=== PATIENT | male | born 1950 | race Caucasian/White ===

== ENCOUNTER 2022-12-26 12:17 | Inpatient (IN) ==
[2022-12-26 14:37] LABS: Bilirubin,Urine Negative (Negative); Blood, Urine Negative (Negative); Glucose,Urine (UA) Negative (Negative); Ketones,Urine Negative (Negative); Mucus,Urine Occasional /LPF (Occasional); Nitrite,Urine Negative (Negative); Protein,Urine Negative (Negative); RBC,Urine <1 /HPF (0-4); Sperm,Urine Few /HPF (Negative); Urine Appearance Clear (Clear); Urine Color Yellow (Yellow); Urine Urobilinogen 0.2 eU/dL (<2.0); Urine pH 7.5 (4.5-8.0)
[2022-12-26 14:45] LABS: Basophils % 0.2 % (0.0-0.8); Hematocrit 46.1 VOL% (42.0-52.0); Hemoglobin 15.3 GM/DL (14.0-18.0); Immature Granulocytes % 0.6 %; Immature Granulocytes Absolute 0.13 #; Lymphocytes # 1.4 10*3/uL (1.4-4.0); Lymphocytes % 5.8 % (21.2-54.2); Mean Corpuscular HGB Conc 33.2 GM/DL (32-36); Mean Corpuscular Volume 87.6 FL (87-102); Mean Platelet Volume 8.7 FL (9.6-12.0); Monocytes # 1.5 10*3/uL (0.11-0.8); Monocytes % 6.3 % (1.7-12.7); Neutrophils % 87.1 % (38.7-73.9); Platelet Count 348 T/CUMM (130-400); Red Blood Count 5.26 MC/CUMM (3.8-5.5); Red Cell Distribution Width 14.7 % (9.3-17.3); White Blood Count 23.37 T/CUMM (4-12)
[2022-12-26 15:07] LABS: Bilirubin,Total 0.6 MG/DL (0.20-1.00); Calcium 9.4 MG/DL (8.5-10.1); Osmolality,Calculated 279.4 MOS/KG (273-304); Potassium 3.7 MMOL/L (3.5-5.1); Total Protein 7.9 G/DL (6.4-8.2)
[2022-12-26 15:14] LABS: Band Neutrophils 3 % (0-10); Lymphocytes 10 % (20-55)
[2022-12-26 15:15] LABS: Ovalocytes Slight; Platelet Estimate Normal
[2022-12-26 15:16] LABS: Total Cells Counted 100
[2022-12-26] MEDS ORDERED: MORPHINE 2 MG/1 ML SYRINGE IV STA (15:51)
[2022-12-26] MEDS ORDERED: ONDANSETRON 4 MG/2 ML VIAL IV STA (15:52)
[2022-12-26] MEDS ORDERED: PIPERACILLIN/TAZOBACTAM 3,375 MG in SODIUM CHLORIDE 0.9% 100 ML IV STA (16:22)
[2022-12-26] MEDS ORDERED: SODIUM CHLORIDE 0.9% 500 ML IV STA (16:22)
[2022-12-26] MEDS ORDERED: HYDROmorphone 1 MG/1 ML SYRINGE IV STA (16:31)
[2022-12-26] MEDS ORDERED: DOCUSATE SODIUM 100 MG CAPSULE PO PRN (18:34)
[2022-12-26] MEDS ORDERED: ONDANSETRON 4 MG/2 ML VIAL IV PRN (18:34)
[2022-12-26] MEDS ORDERED: ACETAMINOPHEN 325 MG TABLET PO PRN (18:34)
[2022-12-26] MEDS: ALBUTEROL 2.5 MG/3 ML NEB RESP TX SCH (20:58)
[2022-12-26] MEDS: ENOXAPARIN 40 MG/0.4 ML SYRINGE SUBCUT SCH (21:16)
[2022-12-26] MEDS: HYDROmorphone 1 MG/1 ML SYRINGE IV PRN (21:17)
[2022-12-26] MEDS: ZALEPLON 5 MG CAPSULE PO PRN (21:17)
[2022-12-26] MEDS: AZITHROMYCIN INJ 500 MG in SODIUM CHLORIDE 0.9% 250 ML IV SCH (21:17)
[2022-12-26] MEDS: guaiFENesin/DM ER 600-30 MG TABLET PO SCH (21:17)
[2022-12-27] MEDS: PIPERACILLIN/TAZOBACTAM 3,375 MG in SODIUM CHLORIDE 0.9% 100 ML IV SCH ×3 (00:15→16:26)
[2022-12-27] MEDS: ALBUTEROL 2.5 MG/3 ML NEB RESP TX SCH ×4 (00:49→18:45)
[2022-12-27] MEDS: HYDROmorphone 1 MG/1 ML SYRINGE IV PRN (04:22)
[2022-12-27 06:00] LABS: Basophils % 0.1 % (0.0-0.8); Hematocrit 43.4 VOL% (42.0-52.0); Hemoglobin 14.1 GM/DL (14.0-18.0); Immature Granulocytes % 0.6 %; Immature Granulocytes Absolute 0.14 #; Lymphocytes # 1.9 10*3/uL (1.4-4.0); Lymphocytes % 8.9 % (21.2-54.2); Mean Corpuscular HGB Conc 32.5 GM/DL (32-36); Mean Corpuscular Volume 87.9 FL (87-102); Mean Platelet Volume 9.5 FL (9.6-12.0); Monocytes # 1.7 10*3/uL (0.11-0.8); Monocytes % 7.7 % (1.7-12.7); Neutrophils % 82.7 % (38.7-73.9); Platelet Count 311 T/CUMM (130-400); Red Blood Count 4.94 MC/CUMM (3.8-5.5); Red Cell Distribution Width 14.7 % (9.3-17.3); White Blood Count 21.56 T/CUMM (4-12)
[2022-12-27 06:10] LABS: Osmolality,Calculated 271.1 MOS/KG (273-304); Potassium 3.8 MMOL/L (3.5-5.1)
[2022-12-27 06:35] LABS: Band Neutrophils 3 % (0-10); Lymphocytes 13 % (20-55); Platelet Estimate Normal; Total Cells Counted 100
[2022-12-27 06:36] LABS: Anisocytosis Slight
[2022-12-27] MEDS: FINASTERIDE 5 MG TABLET PO SCH (08:46)
[2022-12-27] MEDS: TAMSULOSIN 0.4 MG CAPSULE PO SCH (08:46)
[2022-12-27] MEDS: PANTOPRAZOLE 40 MG TABLET PO SCH (08:46)
[2022-12-27] MEDS: guaiFENesin/DM ER 600-30 MG TABLET PO SCH ×2 (08:46→20:38)
[2022-12-27] MEDS: amLODIPine 10 MG TABLET PO SCH (10:53)
[2022-12-27] MEDS ORDERED: HYDROmorphone 1 MG/1 ML SYRINGE IV PRN (15:20)
[2022-12-27] MEDS: AZITHROMYCIN INJ 500 MG in SODIUM CHLORIDE 0.9% 250 ML IV SCH (20:43)
[2022-12-27] MEDS: ENOXAPARIN 40 MG/0.4 ML SYRINGE SUBCUT SCH (20:47)
[2022-12-28] MEDS: ALBUTEROL 2.5 MG/3 ML NEB RESP TX SCH ×4 (01:10→19:15)
[2022-12-28] MEDS: PIPERACILLIN/TAZOBACTAM 3,375 MG in SODIUM CHLORIDE 0.9% 100 ML IV SCH ×3 (01:40→16:50)
[2022-12-28 05:28] LABS: Basophils % 0.2 % (0.0-0.8); Eosinophils # 0.1 10*3/uL (0.0-0.87); Eosinophils % 0.5 % (0.00-10.9); Hematocrit 40.9 VOL% (42.0-52.0); Hemoglobin 13.6 GM/DL (14.0-18.0); Immature Granulocytes % 0.5 %; Lymphocytes # 1.8 10*3/uL (1.4-4.0); Lymphocytes % 9.2 % (21.2-54.2); Mean Corpuscular HGB Conc 33.3 GM/DL (32-36); Mean Platelet Volume 9.4 FL (9.6-12.0); Monocytes # 1.3 10*3/uL (0.11-0.8); Monocytes % 6.7 % (1.7-12.7); Neutrophils % 82.9 % (38.7-73.9); Platelet Count 258 T/CUMM (130-400); Red Blood Count 4.65 MC/CUMM (3.8-5.5); Red Cell Distribution Width 14.5 % (9.3-17.3); White Blood Count 19.25 T/CUMM (4-12)
[2022-12-28 06:07] LABS: Calcium 9.3 MG/DL (8.5-10.1); Osmolality,Calculated 274.8 MOS/KG (273-304); Potassium 3.3 MMOL/L (3.5-5.1)
[2022-12-28] MEDS: amLODIPine 10 MG TABLET PO SCH (09:00)
[2022-12-28] MEDS: guaiFENesin/DM ER 600-30 MG TABLET PO SCH ×2 (09:00→21:45)
[2022-12-28] MEDS: TAMSULOSIN 0.4 MG CAPSULE PO SCH (09:00)
[2022-12-28] MEDS: FINASTERIDE 5 MG TABLET PO SCH (09:00)
[2022-12-28] MEDS: LOSARTAN 50 MG TABLET PO SCH (09:00)
[2022-12-28] MEDS: PANTOPRAZOLE 40 MG TABLET PO SCH (09:00)
[2022-12-28] MEDS ORDERED: ALBUTEROL 1.25 MG/3 ML NEB RESP TX PRN (11:54)
[2022-12-28] MEDS: ARFORMOTEROL 15 MCG/2 ML NEB RESP TX SCH ×2 (13:20→19:14)
[2022-12-28] MEDS: BUDESONIDE 0.5 MG/2 ML NEB RESP TX SCH ×2 (13:20→19:15)
[2022-12-28] MEDS: AZITHROMYCIN INJ 500 MG in SODIUM CHLORIDE 0.9% 250 ML IV SCH (21:45)
[2022-12-28] MEDS: ZALEPLON 5 MG CAPSULE PO PRN (21:45)
[2022-12-28] MEDS: ENOXAPARIN 40 MG/0.4 ML SYRINGE SUBCUT SCH (21:50)
[2022-12-29] MEDS: ALBUTEROL 2.5 MG/3 ML NEB RESP TX SCH ×4 (00:31→19:55)
[2022-12-29] MEDS: PIPERACILLIN/TAZOBACTAM 3,375 MG in SODIUM CHLORIDE 0.9% 100 ML IV SCH ×3 (00:50→16:41)
[2022-12-29 05:22] LABS: Basophils % 0.2 % (0.0-0.8); Eosinophils # 0.3 10*3/uL (0.0-0.87); Eosinophils % 1.4 % (0.00-10.9); Hematocrit 38.8 VOL% (42.0-52.0); Hemoglobin 12.9 GM/DL (14.0-18.0); Immature Granulocytes % 0.4 %; Immature Granulocytes Absolute 0.08 #; Lymphocytes # 1.6 10*3/uL (1.4-4.0); Lymphocytes % 8.4 % (21.2-54.2); Mean Corpuscular HGB Conc 33.2 GM/DL (32-36); Mean Corpuscular Volume 88.2 FL (87-102); Mean Platelet Volume 9.1 FL (9.6-12.0); Monocytes # 1.5 10*3/uL (0.11-0.8); Monocytes % 8.1 % (1.7-12.7); Neutrophils % 81.5 % (38.7-73.9); Platelet Count 272 T/CUMM (130-400); Red Cell Distribution Width 14.4 % (9.3-17.3); White Blood Count 18.37 T/CUMM (4-12)
[2022-12-29 05:48] LABS: Calcium 9.1 MG/DL (8.5-10.1); Osmolality,Calculated 275.5 MOS/KG (273-304); Potassium 3.4 MMOL/L (3.5-5.1)
[2022-12-29] MEDS: BUDESONIDE 0.5 MG/2 ML NEB RESP TX SCH (07:10)
[2022-12-29] MEDS: ARFORMOTEROL 15 MCG/2 ML NEB RESP TX SCH (07:10)
[2022-12-29] MEDS: TAMSULOSIN 0.4 MG CAPSULE PO SCH (09:29)
[2022-12-29] MEDS: amLODIPine 10 MG TABLET PO SCH (09:29)
[2022-12-29] MEDS: FINASTERIDE 5 MG TABLET PO SCH (09:29)
[2022-12-29] MEDS: PANTOPRAZOLE 40 MG TABLET PO SCH (09:29)
[2022-12-29] MEDS: guaiFENesin/DM ER 600-30 MG TABLET PO SCH ×2 (09:29→21:15)
[2022-12-29] MEDS: LOSARTAN 50 MG TABLET PO SCH (09:31)
[2022-12-29] MEDS: ENOXAPARIN 40 MG/0.4 ML SYRINGE SUBCUT SCH (21:16)
[2022-12-30] MEDS: POLYETHYLENE GLYCOL POWDER 17 GM PACK PO SCH ×3 (00:05→20:42)
[2022-12-30] MEDS: PIPERACILLIN/TAZOBACTAM 3,375 MG in SODIUM CHLORIDE 0.9% 100 ML IV SCH ×3 (02:26→17:02)
[2022-12-30] MEDS: ALBUTEROL 2.5 MG/3 ML NEB RESP TX SCH ×4 (02:56→19:52)
[2022-12-30 05:07] LABS: Basophils % 0.2 % (0.0-0.8); Eosinophils # 0.4 10*3/uL (0.0-0.87); Eosinophils % 2.9 % (0.00-10.9); Hematocrit 38.3 VOL% (42.0-52.0); Hemoglobin 12.4 GM/DL (14.0-18.0); Immature Granulocytes % 0.5 %; Immature Granulocytes Absolute 0.07 #; Lymphocytes # 1.6 10*3/uL (1.4-4.0); Lymphocytes % 12.2 % (21.2-54.2); Mean Corpuscular HGB Conc 32.4 GM/DL (32-36); Mean Corpuscular Volume 88.2 FL (87-102); Mean Platelet Volume 9.4 FL (9.6-12.0); Monocytes # 1.4 10*3/uL (0.11-0.8); Monocytes % 10.3 % (1.7-12.7); Neutrophils % 73.9 % (38.7-73.9); Platelet Count 282 T/CUMM (130-400); Red Blood Count 4.34 MC/CUMM (3.8-5.5); Red Cell Distribution Width 14.4 % (9.3-17.3); White Blood Count 13.26 T/CUMM (4-12)
[2022-12-30 05:30] LABS: Osmolality,Calculated 273.7 MOS/KG (273-304); Potassium 3.3 MMOL/L (3.5-5.1)
[2022-12-30] MEDS: POTASSIUM CHLORIDE 20 MEQ TABLET PO PRN ×3 (07:17→11:55)
[2022-12-30] MEDS: FINASTERIDE 5 MG TABLET PO SCH (09:20)
[2022-12-30] MEDS: TAMSULOSIN 0.4 MG CAPSULE PO SCH (09:20)
[2022-12-30] MEDS: LOSARTAN 50 MG TABLET PO SCH (09:20)
[2022-12-30] MEDS: amLODIPine 10 MG TABLET PO SCH (09:20)
[2022-12-30] MEDS: PANTOPRAZOLE 40 MG TABLET PO SCH (10:13)
[2022-12-30] MEDS: guaiFENesin/DM ER 600-30 MG TABLET PO SCH ×2 (10:13→20:41)
[2022-12-30] MEDS: ALPRAZolam 0.5 MG TABLET PO SCH ×2 (15:17→20:41)
[2022-12-30] MEDS: ENOXAPARIN 40 MG/0.4 ML SYRINGE SUBCUT SCH (21:43)
[2022-12-31] MEDS: PIPERACILLIN/TAZOBACTAM 3,375 MG in SODIUM CHLORIDE 0.9% 100 ML IV SCH ×3 (01:50→10:58)
[2022-12-31 05:25] LABS: Basophils % 0.2 % (0.0-0.8); Eosinophils # 0.5 10*3/uL (0.0-0.87); Eosinophils % 4.8 % (0.00-10.9); Hematocrit 38.8 VOL% (42.0-52.0); Hemoglobin 12.6 GM/DL (14.0-18.0); Immature Granulocytes % 0.8 %; Immature Granulocytes Absolute 0.09 #; Lymphocytes # 1.8 10*3/uL (1.4-4.0); Lymphocytes % 16.5 % (21.2-54.2); Mean Corpuscular HGB Conc 32.5 GM/DL (32-36); Mean Corpuscular Volume 88.2 FL (87-102); Monocytes # 1.2 10*3/uL (0.11-0.8); Monocytes % 11.5 % (1.7-12.7); Neutrophils % 66.2 % (38.7-73.9); Platelet Count 289 T/CUMM (130-400); Red Cell Distribution Width 14.5 % (9.3-17.3); White Blood Count 10.69 T/CUMM (4-12)
[2022-12-31 05:32] LABS: Calcium 8.9 MG/DL (8.5-10.1); Osmolality,Calculated 277.4 MOS/KG (273-304); Potassium 3.8 MMOL/L (3.5-5.1)
[2022-12-31] MEDS: ALBUTEROL 2.5 MG/3 ML NEB RESP TX SCH ×3 (06:28→13:17)
[2022-12-31] MEDS: amLODIPine 10 MG TABLET PO SCH (08:56)
[2022-12-31] MEDS: ALPRAZolam 0.5 MG TABLET PO SCH (08:56)
[2022-12-31] MEDS: TAMSULOSIN 0.4 MG CAPSULE PO SCH (08:56)
[2022-12-31] MEDS: POLYETHYLENE GLYCOL POWDER 17 GM PACK PO SCH (08:57)
[2022-12-31] MEDS: FINASTERIDE 5 MG TABLET PO SCH (08:57)
[2022-12-31] MEDS: POTASSIUM CHLORIDE 20 MEQ TABLET PO PRN (08:57)
[2022-12-31] MEDS: LOSARTAN 50 MG TABLET PO SCH (08:57)
[2022-12-31] MEDS: PANTOPRAZOLE 40 MG TABLET PO SCH (08:57)
[2022-12-31] MEDS: guaiFENesin/DM ER 600-30 MG TABLET PO SCH ×2 (10:57→13:45)
[2022-12-31 11:15] VITALS: BP 166/75
== END 2022-12-31 16:00 | disposition home or self-care (01) | DRG 391 ==
LOC: N.ED 12:17 → SUATTDRO 17:02 → N.EDINP 18:18 → N.3E 18:20
PROVIDERS: ADMIT Hospitalist; ATTEND Family Medicine